=== PATIENT | female | born 1955 | race American Indian/Alaskan Native ===

== ENCOUNTER 2021-06-30 11:49 | Outpatient (CLI) | payer MEDICARE ==
--- NOTE | 2021-06-30 14:34 | Mammography Report ---
DEXA BONE DENSITY SCAN INDICATION / CLINICAL INFORMATION: OSTEOPOROSIS. 66 years Female COMPARISON: None available. LUMBAR SPINE, L1-L4: - Bone mineral density (BMD) = 1.084 g/cm2. - T-score = 0.3 - Change (%) since most recent prior (if available): None available. LEFT HIP, NECK : - Bone mineral density (BMD) = 0.954 g/cm2. - T-score = 0.9 - Change (%) since most recent prior (if available): None available. IMPRESSION: 1. WHO Classification: Normal bone density. Fracture Risk: Not Increased. 2. 10-Year Fracture Risk (FRAX) = Major Osteoporotic Not reported.% / Hip: Not reported.% FRAX generally not reported for patients with normal or osteoporotic BMD, in nml-yifirbx-oefrpso shirley ents younger than age 50, or in patients undergoing pharmacotherapy BMD Reporting Guidelines (ISCD, 2015) BMD Reporting in Postmenopausal Women and in Men Age 50 and Older - T-scores are preferred. - The WHO densitometric classification is applicable. BMD Reporting in Females Prior to Menopause and in Males Younger Than Age 50 - Z-scores, not T-scores, are preferred. This is particularly important in children. - A Z-score of -2.0 or lower is defined as below the expected range for age, and a Z-score above -2.0 is within the expected range for age. - Osteoporosis cannot be diagnosed in men under age 50 on the basis of BMD alone. - The WHO diagnostic criteria may be applied to women in the menopausal transition. http://www.iscd.org/official-positions/6093-ekvu-grunjogz-positions-adult/ Signer Name: Haroldo Vila MD Signed: 06/30/2021 2:30 PM Workstation Name: [id number]
--- NOTE | 2021-06-30 15:41 | Magnetic Resonance Report ---
MRI CERVICAL SPINE WITHOUT CONTRAST INDICATION / CLINICAL INFORMATION: M54.12. TECHNIQUE: Multisequence, multiplanar images of the cervical spine were obtained. COMPARISON: None available. FINDINGS: POSTOPERATIVE CHANGES: none CRANIOCERVICAL JUNCTION:No significant abnormality. ALIGNMENT: Loss of the normal cervical lordosis is noted. No additional abnormalities of alignment ar e identified. VERTEBRAE:Normal bone marrow signal is observed throughout the cervical region. CERVICAL INTERVERTEBRAL DISCS: Disc desiccation is evident at the C4-5 and C5-6 levels were loss of d isc height and decreased disc signal intensity are observed. VISUALIZED SPINAL CORD: No intrinsic cord lesions are identified. [id number] ANALYSIS: C2-3: No significant disc abnormality, spinal canal stenosis, or neural foraminal stenosis. C3-4: No significant disc abnormality, spinal canal stenosis, or neural foraminal stenosis. C4-5: Moderate central disc herniation produces thecal sac deformity and flattens the ventral surface of the cord. There may be accompanying osteophyte. There is a mild degree of central canal stenosis at this level. The C5 nerve root neuroforamina are adequately maintained. Incidental note is made of anterior osteophyte formation. C5-6: Disc desiccation is noted. Anterior osteophyte formation is observed. Minimal central disc prot rusion is present without associated thecal sac deformity. Central spinal canal and neuroforamina are adequately maintained. C6-7: No significant disc abnormality, spinal canal stenosis, or neural foraminal stenosis. C7-T1: No significant disc abnormality, spinal canal stenosis, or neural foraminal stenosis. PARASPINAL SOFT TISSUES: No significant abnormality. IMPRESSION: 1. At C4-5-1 moderate central disc herniation produces thecal sac deformity and flattening of the manuel tral surface of the cord. A mild degree of central canal stenosis is observed at the C4-5 level. 2. Milder degenerative changes are observed at C5-6 as noted above. Signer Name: Rajeev Vyas MD Signed: 06/30/2021 3:36 PM Workstation Name: [id number]
== END 2021-06-30 11:50 | disposition home or self-care (01) ==
LOC: MAMMO 11:49
PROVIDERS: ATTEND Family Medicine Adult Medicine
DX: M50.122 Cervical disc disorder at C5-C6 level with radiculopathy (principal); M50.121 Cervical disc disorder at C4-C5 level with radiculopathy; M40.40 Postural lordosis, site unspecified; M47.812 Spondylosis without myelopathy or radiculopathy, cervical region; M25.78 Osteophyte, vertebrae; M81.0 Age-related osteoporosis without current pathological fracture
CPT/HCPCS: 72141; 77080